=== PATIENT | female | born 1965 | race Two or more races ===

== ENCOUNTER 2024-06-02 09:05 | Day surgery (SDC) | payer MEDICAID, SELFPAY ==
--- NOTE | 2024-05-29 12:17 | EKG_ITS ---
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
[2024-05-29 12:29] VITALS: BMI 50.6
[2024-05-29 13:42] LABS: Basophils % (Auto) 1 % (0-2.5); Eosinophils # (Auto) 0.2 Thou/mm3 (0.0-0.5); Eosinophils % (Auto) 2 % (0-10); Hematocrit 42.5 % (36.0-46.0); Hemoglobin 14.1 g/dL (12.0-16.0); Immature Granulocytes % (Auto) 0 % (0-0); Immature Granulocytes Auto 0.03 Thou/mm3 (0.00-0.00); Lymphocytes % (Auto) 24 % (10-50); Mean Corpuscular HGB Conc 33.2 g/dl (31.0-37.0); Mean Corpuscular Hemoglobin 28.7 pg (25.0-35.0); Mean Corpuscular Volume 87 fL (80-100); Monocytes # (Auto) 0.6 Thou/mm3 (0.0-0.8); Monocytes % (Auto) 6 % (0-12); Neutrophils # (Auto) 5.8 Thou/mm3 (1.8-7.7); Neutrophils % (Auto) 67 % (37-80); Nucleated Red Blood Cell % 0 /100 WBC (0); Platelet Count 234 Thou/mm3 (140-440); RDW Standard Deviation 46.5 fL (36.4-46.3); Red Blood Count 4.91 Miln/mm3 (4.00-5.20); White Blood Count 8.7 Thou/mm3 (3.6-11.0)
--- NOTE | 2024-05-29 14:13 | SUR.PREOP ---
EKG reviewed with Dr Aguilera.
[2024-05-29 14:39] LABS: Alanine Aminotransferase 19 U/L (10-49); Albumin, Serum 4.5 gm/dL (3.4-4.8); Albumin/Globulin Ratio 1.7 (1.2-2.2); Alkaline Phosphatase 91 U/L (46-116); Anion Gap 7 (7-16); Aspartate Amino Transferase 14 U/L (0-34); BUN/Creatinine Ratio 26 Ratio (12-20); Bilirubin,Total 0.4 mg/dL (0.3-1.2); Blood Urea Nitrogen 21 mg/dL (9-23); Calcium 9.6 mg/dL (8.3-10.6); Calcium (Corrected) 9.6 mg/dL (8.5-10.1); Carbon Dioxide 28.8 mMol/L (20.0-31.0); Chloride 105 mMol/L (98-107); Creatinine (Component) 0.8 mg/dL (0.6-1.3); Estimated Creatinine Clearance 90.1 mL/min (>60); Globulin 2.7 gm/dL (2.3-3.5); Glucose 105 mg/dL (74-106); Osmolality,Calculated 284 (275-295); Potassium 4.2 mMol/L (3.4-5.1); Sodium 141 mMol/L (136-145); Total Protein 7.2 gm/dL (5.7-8.2); eGFR > 60 See Note
[2024-06-02] VITALS (9 sets, daily range): BP systolic 98–153; BP diastolic 62–89; PULSE 70–84; RESP 14–21; TEMP 36.5–36.6; O2SAT 95–96; BMI 50.5
--- NOTE | 2024-06-02 10:53 | CHAP ---
Prayed with patient before upcoming procedure and gave words of encouragement.
[2024-06-02] MEDS: RINGERS LACTATED 500 ML 500 ML 20 ML IV (11:57)
[2024-06-02] MEDS: ALBUTEROL RT 2.5 MG/3 ML NEBU 5 MG INH (11:57)
--- NOTE | 2024-06-02 13:38 | ESDS_ITS ---
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 Temp Pulse Resp BP Pulse Ox 98 F 70 14 153/85 H 96 06/02/24 09:49 06/02/24 11:57 06/02/24 09:49 06/02/24 09:49 06/02/24 09:49 Discharge Plan Plan Patient Disposition: HOME (Self Care) Prescriptions/Referrals Prescriptions/Med Rec: No Action metformin 500 mg tablet 500 mg PO DAILY ibuprofen 800 mg Tablet 800 mg PO Q8HR PRN (Reason: Pain) hydrochlorothiazide 12.5 mg capsule 12.5 mg PO QDAY Arnuity Ellipta 100 mcg/actuation Blister With Device 100 mcg INHALATION QDAY Ozempic 0.25 mg or 0.5 mg (2 mg/3 mL) pen injector 25 mg SUBCUT QWEEK Patient Comments: INJECT 0.25 MG SUBCUTANEOUSLY ONCE WEEKLY DIRECTED aspirin [Aspir-81] 81 mg Tablet,Delayed Release (Dr/Ec) 81 mg PO QDAY simvastatin 20 mg Tablet 20 mg PO QPM albuterol sulfate 90 mcg/actuation Hfa Aerosol Inhaler 2 puff INHALATION QID PRN (Reason: Shortness Of Breath Or Wheezing) losartan 100 mg Tablet 100 mg PO QDAY Referrals: Ken Celeste MD [Physician] - Alfredo Waldron MD [Primary Care Provider] - Patient/Caregiver Discharge Instructions Education Materials: Hysteroscopy Print Language: [place]erratian Stand Alone Forms: Shy Award Info., Patient Portal Info Letter Discharge Order Discharge Orders: Discharge (Routine); Ordered 06/02/24 Ordered By: Ken Celeste
--- NOTE | 2024-06-02 13:40 | PD.GYNPROC ---
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 Dilation and curettage Indication: Postmenopausal bleeding Pre-Op diagnosis: Postmenopausal bleeding Post-Op diagnosis: Postmenopausal bleeding Anesthesia type: General Procedure description: The patient was taken to the operating room where she was properly prepped and draped in sterile manner under epidural anesthesia. After bimanual examination, the cervix was exposed with a weighted vaginal speculum and the anterior lip of the cervix grasped with a tooth tenaculum. The endocervical canal was then progressively dilated with Hanks dilators to a #18. The hysteroscope was then introduced into the uterine cavity using sterile saline solution as a distending media and with attached video camera. The endometrial cavity was distended with normal saline and the cavity visualized with no gross anomalies noted. At this point hysteroscope was removed, and a curette was inserted and used to obtain moderate amount of tissue. The patient tolerated the procedure well. All instruments were removed from the vaginal vault. The patient was sent to recovery area in satisfactory postoperative condition Specimen: other (EMB) Estimated blood loss (ml): 5 Findings: Normal endometrial cavity Complications: none Surgical staff Operation Date: 06/02/24 11:35 <No data on this case meets the specified criteria> Diagnosis Problem List Completed Was Problem List Reviewed/Reconciled?: Yes
--- NOTE | 2024-06-02 13:45 | SUR.PHASEI ---
pt arrived to PACU via gurney drowsy but arouses to verbal commands, breathing unlabored, peripad in place-clean and dry, report from Ab WIGGINS and Dr Arrieta
--- NOTE | 2024-06-02 13:55 | SUR.PHASEI ---
report to Sharifa Pike RN
--- NOTE | 2024-06-02 13:55 | SUR.PHASEI ---
1355 Report received from Sharifa Plummer RN
--- NOTE | 2024-06-02 15:03 | SUR.PHASEII ---
1503 Patient meets discharge criteria from recovery, awake and alert, breathing unlabored, vital signs stable, denies pain, dressing intact; no bleeding noted, patient ate a jello and drinking 7up; denies nausea, patient able to dress herself into her clothing, discharge instructions given to patient and patient with the assistance of the telephone log truck driver Bo ID#[id number], patient signed discharge instructions. Patient given all her belongings prior to discharge, transported via wheelchair and left in a private vehicle.
== END 2024-06-02 15:03 | disposition home or self-care (01) ==
PROVIDERS: Anesthesiology; PCP Family Medicine; Referring Provider Obstetrics & Gynecology; Visit Provider Obstetrics & Gynecology
PROC: 0U5B8ZZ Destruction of Endometrium, Via Natural or Artificial Opening Endoscopic (ICD-10-PCS; CPT 58563; principal; 2024-06-02 11:30)
DX: N95.0 Postmenopausal bleeding (principal); Z01.810 Encounter for preprocedural cardiovascular examination
CPT/HCPCS: 58558; 36415; 80053; 85025; 86850; 86900; 86901; 93005; A4649; J1100; J2250; J2405; J2704; J3010; J7120

== ENCOUNTER 2024-08-01 14:12 | Emergency (ER) | payer MEDICAID, SELFPAY ==
[2024-08-01 14:13] VITALS: BMI 51.2
[2024-08-01 15:04] VITALS: BP 135/85; PULSE 93; RESP 18; TEMP 36.8; O2SAT 94
--- NOTE | 2024-08-01 15:12 | XR_ITS ---
Examination: CT chest, without intravenous contrast. Sagittal and coronal 2-D reconstructions. Exam date and time: August 01, 2024 at 1523 hrs. Indications: Coughing beginning 2 months ago CTDI:vol (mGy) 27.4 DLP: (mGycm) 963 Technique: Multiple 3.0 mm axial sections of the chest to been obtained. Bone and lung density settings are obtained. Sagittal and coronal 2-D reconstructions have been obtained. Low dose protocols were performed. One or more of the following dose reduction techniques were used; automated exposure control, adjustment of the mA and/or KV according to patient size, use of iterative reconstruction technique. Findings: Thoracic aortic calcification no aneurysmal dilatation Pulmonary artery segments are not enlarged Mild calcification left anterior descending coronary artery No paratracheal tracheobronchial or bronchopulmonary adenopathy 2 mm pulmonary nodule right upper lobe image 125 4 mm pulmonary nodule left lower lobe image 186 3 mm pulmonary nodule left lower lobe image 194 3 mm pulmonary nodule left lower lobe image 204 8mm pulmonary nodule right lower lobe image 225 No lobar pneumonia or pulmonary edema Minor atelectasis in the lingular segment Liver is mildly irregular in contour and enlarged, only partly visible Contracted gallbladder No splenic or pancreatic or adrenal mass lesion Kidneys partially visualized no hydronephrosis Moderate osteopenia with moderate thoracic spondylosis Impression: No pneumonia, pulmonary edema or pleural disease Noncalcified pulmonary nodules as above, with this study as baseline recommend continued 6 month follow-up CT chest without contrast Suspect primary hepatocellular disease
--- NOTE | 2024-08-01 15:13 | EDNOTE_ITS ---
<Statement entered by Isidra Chnio MD - 08/02/24 03:22> As co-signing physician, I was present and available for consult prn. I concur with the plan and care as documented by the midlevel provider. Upper Respiratory Inf. RME/HPI General Chief Complaint: Flu Like Symptoms Stated Complaint: COUGH x 2 MONTHS Time Seen by Provider: 08/01/24 14:54 Arrival date/time: 08/01/24 14:12 RME / HPI RME / HPI Narrative: 59-year-old female patient with significant history of COPD, hypertension diabetes mellitus, came in for evaluation regarding concern about cough. Patient has been having worsening cough for the last 2 months, getting worse over time, was seen by PCP, and was told that x-ray looks normal. Patient also complained of sore throat, nasal congestion, 1.4 and headache. Denies any fever. Patient is worried about her. Asking if I can order for CT of the chest. Denies any other complaints. Related Data Home Medications ?Medication ?Instructions ?Recorded ?Confirmed fluticasone furoate 100 100 mcg inhalation QDAY 03/02/24 05/29/24 mcg/actuation blister powder for inhalation (Arnuity Ellipta) hydrochlorothiazide 12.5 mg capsule 12.5 mg PO QDAY 03/02/24 05/29/24 ibuprofen 800 mg tablet 800 mg PO Q8HR PRN Pain 03/02/24 05/29/24 metformin 500 mg tablet 500 mg PO DAILY 03/02/24 05/29/24 semaglutide 0.25 mg or 0.5 mg (2 25 mg subcut QWEEK 03/02/24 05/29/24 mg/3 mL) subcutaneous pen injector (Ozempic) albuterol sulfate 90 mcg/actuation 2 puff inhalation QID PRN 05/29/24 05/29/24 aerosol inhaler Shortness Of Breath Or Wheezing aspirin 81 mg tablet,delayed 81 mg PO QDAY 05/29/24 05/29/24 release losartan 100 mg tablet 100 mg PO QDAY 05/29/24 05/29/24 simvastatin 20 mg tablet 20 mg PO QPM 05/29/24 05/29/24 Previous Rx's ?Medication ?Instructions ?Recorded ibuprofen 800 mg tablet 800 mg PO TID PRN pain #30 tabs 08/01/24 oseltamivir 75 mg capsule (Tamiflu) 75 mg PO BID 5 days #10 caps 08/01/24 Allergies Allergy/AdvReac Type Severity Reaction Status Date / Time No Known Allergies Allergy Verified 08/01/24 14:20 Review of Systems Review of Systems Narrative Review of Systems: Review of system reviewed and within normal limits except mentioned in HPI ED Exam Narrative Physical exam: VITAL SIGNS: Reviewed. GENERAL APPEARANCE: Alert and interactive, follows commands, no acute distress, HEAD AND FACE: Non-traumatic. ENT: PERRL, pink conjunctivitis, eyelid no trauma, Mucous membrane moist. NECK: Supple, nontender, no nuchal rigidity. CHEST: No tenderness, no crepitus, no paradoxical movement, no retractions. LUNGS: Clear, well ventilated, symmetric, no rales, no wheezing, no ronchi, no stridor, good breath sounds bilaterally. HEART: Regular rate, regular rhythm, no murmur, no gallops. ABDOMEN: Soft, positive bowel sounds, nondistended, no guarding, nontender, no rebound, no masses, RECTAL: Deferred. GENITAL: Deferred. NEUROLOGICAL: Gross motor function intact sensory function intact, Appropriate for age. MUSCULOSKELETAL: low back nontender, full range of motion. EXTREMITIES: Nontender, full range of motion. SKIN: Color pink, dry, no rash, no lacerations, no abrasions, no contusions. LYMPHATICS: Deferred. Course Quality Measures none Orders Category Date Time Status Bedside COVID-19 Antigen Test NOW Care 08/01/24 15:12 Active Bedside Influenza A&B Antigen Test NOW Care 08/01/24 15:[address] chest wo con Stat Exams 08/01/24 15:12 Completed Oseltamivir [Tamiflu] Med 08/01/24 20:21 Discontinued 75 mg PO X1 ONE Vital Signs Vital signs: Vital Signs Temperature 98.3 F 08/01/24 15:04 Pulse Rate 93 08/01/24 15:04 Respiratory Rate 18 08/01/24 15:04 Blood Pressure 135/85 H 08/01/24 15:04 Pulse Oximetry (%) 94 L 08/01/24 15:04 Oxygen Delivery Method Room Air 08/01/24 15:04 Upper Respiratory Infection MDM Narrative MDM Narrative:: 59-year-old female patient with significant history of COPD, hypertension diabetes mellitus, came in for evaluation regarding concern about cough. Patient has been having worsening cough for the last 2 months, getting worse over time, was seen by PCP, and was told that x-ray looks normal. Patient also complained of sore throat, nasal congestion, 1.4 and headache. Denies any fever. Patient is worried about her. Asking if I can order for CT of the chest. Denies any other complaints. Patient tested positive for influenza A. CT scan of chest showed multiple pulmonary nodules, UA with recommendation is repeat CT scan of the chest in 6 months. Results discussed with the patient. Patient appears nontoxic and hemodynamically stable. Patient discharged home and instructed to follow-up with primary care provider in 24 to 48 hours. Instructed to return to the emergency department immediately if worsening of symptoms Patient data External records reviewed:: None Clinical information provided by:: patient Social determinants that could affect healthcare access:: none Patient has the following chronic illnesses:: None How is presenting disease/condition affected by chronic disease/condition?: no chronic disease Evaluation data The following diagnostics were reviewed and interpreted by me:: lab results and radiology exam(s) Lab and/or radiology exams considered but not ordered:: None Interpretation Summary: Seizure resulting in Medications / Prescriptions Medications or Prescriptions considered but not ordered:: None Tamiflu Medication administrations:: Medication Administration History Discontinued Medications Oseltamivir Phosphate (Oseltamivir 75 Mg Capsule) 75 mg PO X1 ONE Stop: 08/01/24 20:22 Tamiflu Consultations Consultation(s) initiated? (list below): No Diagnosis Upper Respiratory Differential Diagnosis: upper respiratory infection, viral infection, influenza and other (Chronic cough) Most likely diagnosis given after review of the tests above:: Chronic cough, influenza Admission Indicated Admission indicated?: not indicated Explain why admission is indicated or not indicated:: Stable Admission Request Was there a request for admission?: No Disposition Plan Disposition Plan: Discharge Discharge Attestation Discharge Attestation: The patient was given an opportunity to ask questions and understood the discharge instructions. Discharge instructions specifically effects, indications for sooner follow up or return to the emergency department, and the expected course of current diagnosis. Patient condition: Stable Discharge Plan Plan Patient Disposition: HOME (Self Care) Disposition Comment: stable Prescriptions/Referrals Prescriptions/Med Rec: New oseltamivir [Tamiflu] 75 mg capsule 75 mg PO BID 5 Days Qty: 10 0RF ibuprofen 800 mg tablet 800 mg PO TID PRN (Reason: pain) Qty: 30 0RF No Action metformin 500 mg tablet 500 mg PO DAILY ibuprofen 800 mg Tablet 800 mg PO Q8HR PRN (Reason: Pain) hydrochlorothiazide 12.5 mg capsule 12.5 mg PO QDAY Arnuity Ellipta 100 mcg/actuation Blister With Device 100 mcg INHALATION QDAY Ozempic 0.25 mg or 0.5 mg (2 mg/3 mL) pen injector 25 mg SUBCUT QWEEK Patient Comments: INJECT 0.25 MG SUBCUTANEOUSLY ONCE WEEKLY DIRECTED aspirin [Aspir-81] 81 mg Tablet,Delayed Release (Dr/Ec) 81 mg PO QDAY simvastatin 20 mg Tablet 20 mg PO QPM albuterol sulfate 90 mcg/actuation Hfa Aerosol Inhaler 2 puff INHALATION QID PRN (Reason: Shortness Of Breath Or Wheezing) losartan 100 mg Tablet 100 mg PO QDAY Referrals: Alfredo Waldron MD [Primary Care Provider] - In 1 week Problem List Clinical Impression: Influenza, Chronic cough Patient/Caregiver Discharge Instructions Discharge Activity: activity as tolerated Education Materials: ED Influenza (Adult) Additional Instructions: Thank you for the opportunity for serving you today. You are stable for discharged . You are advised to: Follow-up with your PCP in 1 to 2 days and asked for a repeat CT scan of your chest in 6 months for your incidental finding of pulmonary nodule Return to ED for worsening of symptoms Increase oral fluids Take medication as prescribed Print Language: Zambian Stand Alone Forms: Shy Award Info., Patient Portal Info Letter AUGUST/MICHAEL Supervising Physician AUGUST/MICHAEL Supervising Physician: Md Lulú
[2024-08-01 21:03] VITALS: BP 164/67; PULSE 67; RESP 19; TEMP 36.6; O2SAT 99
[2024-08-01] MEDS: OSELTAMIVIR 75 MG CAPSULE PO (21:03)
== END 2024-08-01 21:04 | disposition home or self-care (01) ==
PROVIDERS: Emergency Provider Emergency Medicine; PCP Family Medicine
DX: J11.1 Influenza due to unidentified influenza virus with other respiratory manifestations (principal); J44.9 Chronic obstructive pulmonary disease, unspecified; I10 Essential (primary) hypertension; E11.9 Type 2 diabetes mellitus without complications
CPT/HCPCS: 71250; 87400; 87811; 99283; A9270

== ENCOUNTER → 2024-08-27 | Outpatient (CLI) | payer MEDICAID, SELFPAY ==
--- NOTE | 2024-08-27 11:00 | XR_ITS ---
Examination: Breast ultrasound, unilateral, left complete Date and time of exam: August 27, 2024 1048 hours INDICATIONS: Family history breast cancer mother and sister Technique: Real-time delgado scale ultrasonographic imaging performed left breast including all 4 quadrants as well as nipple retroareolar and axillary region. Findings: 3:00 cyst 5 x 3 x 4 mm No solid nodules IMPRESSION: BI-RADS Category 2: Benign findings
--- NOTE | 2024-08-27 11:45 | XR_ITS ---
Examination: Diagnostic digital mammography, unilateral, left Computer aided detection 3-D breast Tomosynthesis, unilateral Date and time of exam: August 27, 2024 1059 hours INDICATIONS: Mammogram September 27, 2023 17 mm focal asymmetry outer left breast Technique: Nonmagnified MLO, CC views of the left breast have been obtained, reconstructed from 3-D Tomosynthesis images. R2 computer aided detection program utilized for evaluation of suspicious masses and/or abnormal calcifications. 3-D Tomosynthesis images obtained. Findings: The breast is heterogeneously dense, which may obscure small masses 4 mm focal asymmetry outer left breast CC view Impression: BI-RADS category 3: Probably benign findings One additional 6 month left mammogram follow-up is needed to document stability of 4 mm focal asymmetry outer left breast
== END | disposition home or self-care (01) ==
PROVIDERS: Referring Provider Nurse Practitioner Family; Visit Provider Nurse Practitioner Family
DX: R92.332 Mammographic heterogeneous density, left breast (principal); N64.89 Other specified disorders of breast; N60.02 Solitary cyst of left breast
CPT/HCPCS: 76641; 77061; 77065; G0279

== ENCOUNTER → 2025-03-11 | Outpatient (CLI) | payer MEDICAID, SELFPAY ==
--- NOTE | 2025-03-11 08:00 | XR_ITS ---
Examination: CT chest, without intravenous contrast. Sagittal and coronal 2-D reconstructions. Exam date and time: March 11, 2025 0808 hours, comparison August 01, 2024 INDICATIONS: Multiple subcentimeter pulmonary nodules on CT chest study August 01, 2024, COPD, smoking history 33 years CTDI:vol (mGy) 23.1 DLP: (mGycm) 888 Technique: Multiple 3.0 mm axial sections of the chest to been obtained. Bone and lung density settings are obtained. Sagittal and coronal 2-D reconstructions have been obtained. Low dose protocols were performed. One or more of the following dose reduction techniques were used; automated exposure control, adjustment of the mA and/or KV according to patient size, use of iterative reconstruction technique. Findings: No thoracic aortic aneurysmal dilatation Pulmonary artery segments are not enlarged. Mild enlargement cardiac contour. Stable bilateral subcentimeter pulmonary nodules No new pulmonary nodules No pneumonia or pulmonary edema No visualized liver or splenic lesion No gallstones No pancreatic mass Kidneys partially visualized no hydronephrosis IMPRESSION: Stable bilateral subcentimeter pulmonary nodules, no new pulmonary nodules
== END | disposition home or self-care (01) ==
LOC: CCTX 07:35
PROVIDERS: PCP Physician Assistant; Referring Provider Physician Assistant; Visit Provider Physician Assistant
DX: R91.8 Other nonspecific abnormal finding of lung field (principal); J44.9 Chronic obstructive pulmonary disease, unspecified
CPT/HCPCS: 71271

== ENCOUNTER → 2025-04-27 | Outpatient (CLI) | payer MEDICAID, SELFPAY ==
--- NOTE | 2025-04-27 16:00 | XR_ITS ---
Examination: Diagnostic digital mammography, unilateral, left Computer aided detection 3-D breast Tomosynthesis, unilateral Date and time of exam: April 27, 2025, 1554 hours, compared to mammograms dating to September 27, 2023, August 02, 2016 INDICATIONS: Mammogram August 27, 2024 4 mm focal asymmetry outer left breast cc view Technique: Nonmagnified MLO, CC views of the left breast have been obtained, reconstructed from 3-D Tomosynthesis images. R2 computer aided detection program utilized for evaluation of suspicious masses and/or abnormal calcifications. 3-D Tomosynthesis images obtained. Findings: Scattered areas of fibroglandular density Benign calcifications. No suspicious masses Impression: BI-RADS category 2: Benign findings Recommend yearly follow-up mammography
== END | disposition home or self-care (01) ==
LOC: CDIM 15:41
PROVIDERS: Referring Provider Nurse Practitioner Family; Visit Provider Nurse Practitioner Family
DX: N64.89 Other specified disorders of breast (principal); R92.322 Mammographic fibroglandular density, left breast
CPT/HCPCS: 77061; 77065; G0279